=== PATIENT | male | born 2005 | race Two or more races ===

== ENCOUNTER 2025-03-07 00:13 | Emergency (ER) | payer OTHER ==
[~2025-03-07] VITALS: Ht 185.4 cm; Wt 68.0 kg
[2025-03-07] MEDS ORDERED: KETOROLAC TROMETHAMINE 30 MG VIAL IM STA (01:39)
[2025-03-07] MEDS ORDERED: KETOROLAC TROMETHAMINE 30 MG VIAL ONE (01:43)
== END 2025-03-07 04:25 | disposition home or self-care (01) ==
LOC: ER 00:13 → EMR PED 00:13
DX: J20.8 Acute bronchitis due to other specified organisms (principal)